=== PATIENT | male | born 1945 ===

== ENCOUNTER 2016-10-14 12:12 | Observation (INO) | payer OTHER, BC ==
[~2016-10-14] VITALS: Ht 185.4 cm; Wt 125.0 kg
--- NOTE | 2016-10-14 13:24 | DIAGNOSTIC IMAGING REPORT ---
PROCEDURE: CT HEAD WITHOUT CONTRAST INDICATION: FACIAL DROOP TECHNIQUE: Noncontrast axial images with sagittal and coronal reformations. COMPARISON: Head CT 06/11/2012. FINDINGS: Normal sulci and ventricular system. Mild white matter chronic ischemic changes. A 1 cm low-density lesion in the right centrum semiovale, new since the prior CT scan. No mass effect, midline shift or hemorrhage. Mild bilateral maxillary and sphenoid sinus disease. Visualized mastoids are clear. IMPRESSION: 1. 1 cm right centrum semiovale low-density lesion, new since head CT 06/11/2012, which could represent an acute or subacute CVA. MRI may be useful for further evaluation. 2. Mild white matter chronic ischemic changes 3. Sinus disease 4. Findings discussed with Dr. Watt at 01:18 p.m., [place] Standard Time
--- NOTE | 2016-10-14 13:29 | DIAGNOSTIC IMAGING REPORT ---
PROCEDURE: XR CHEST 1 VIEW INDICATION: FACIAL DROOP TECHNIQUE: Portable AP view 12:55 p.m. COMPARISON: Chest x-ray 04/05/2015. FINDINGS: Lung apices obscured by flexion of the head. Lungs are otherwise clear. Mild cardiomegaly. Mediastinum and pulmonary vessels are normal. Thorax is normal. No significant interval change. IMPRESSION: 1. Mild cardiomegaly.
--- NOTE | 2016-10-14 14:57 | ED ORDER SUMMARY ---
..... Patient: KEATON MEJIA OrderSheet [facility] VisitID: [id number] [address] [place] [address] 71y, M Registration Date/Time: 10/14/2016 ORDER SHEET Weight: 122.4 kg (stated) Allergies: Flexeril, Paprika, Penicillins GENERAL ORDERS: Chest 1V Urgent (12:38 10/14/2016 Eamon LEBLANC) (Ack 12:44 ROSEoerner) (12:53 KHoerner) Retail Customer Service Specialist (Continuous) (12:38 10/14/2016 Eamon LEBLANC) (13:24 Jamaal R.N.) CT Head wo Cont Urgent (12:39 10/14/2016 Eamon LEBLANC) (Ack 12:44 Rodriguez) (12:54 KHoerner) CBC w Diff Urgent (12:41 10/14/2016 Eamon LEBLANC) (Ack 12:44 Rodriguez) (13:03 SReitz R.N.) CMP Urgent (12:41 10/14/2016 Eamon LEBLANC) (Ack 12:44 Rdoriguez) (13:03 Mikeitz R.N.) UA-Culture if indicated Urgent (12:41 10/14/2016 Eamon LEBLANC) (Ack 12:44 ROSEoerner) PT with INR Urgent (12:41 10/14/2016 Eamon LEBLANC) (Ack 12:44 Rodriguez) (13:03 SReitz R.N.) PTT Urgent (12:41 10/14/2016 Eamon LEBLANC) (Ack 12:44 ROSEoecharity) (13:03 SReitz R.N.) Lipase Urgent (12:41 10/14/2016 Eamon LEBLANC) (Ack 12:44 Rodriguez) (13:03 SReitz R.N.) Amylase Urgent (12:41 10/14/2016 Eamon LEBLANC) (Ack 12:44 Rodriguez) (13:03 SReitz R.N.) CPK Urgent (12:41 10/14/2016 Eamon LEBLANC) (Ack 12:44 Rodriguez) (13:03 SReitz R.N.) Troponin-I Urgent (12:41 10/14/2016 Eamon LEBLANC) (Ack 12:44 Rodriguez) (13:03 Marilin Dao) Oxygen (2 L/min) (NC) (12:41 10/14/2016 Eamon LEBLANC) (13:24 Jamaal Arana.N.) Pulse oximeter (12:41 10/14/2016 Eamon LEBLANC) (13:03 Marilin Dao) EKG - ER Stat (12:41 10/14/2016 Eamon LEBLANC) (Ack 12:55 Apple) (13:24 Jamaal Arana.N.) MEDICATION ORDERS: IV FLUIDS: IV Saline Lock (12:41 10/14/2016 Eamon LEBLANC) (Ack 13:03 Marilin Dao) (13:24 Jamaal Dao) ORDER SHEET NOTES: [Electronically signed by Nora Montelongo R.N. (17:18 10/14/2016)] [Electronically signed by Deion Watt MD (19:40 10/14/2016)] [Electronically locked/signed by Nora Montelongo R.N. (17:18 10/14/2016)]
--- NOTE | 2016-10-14 14:57 | ED NURSING NOTES ---
Clinical Report - Nurses [facility] [address] [place] [address] 10/14/2016 12:15 Patient: KEATON MEJIA TRIAGE Triage time 12:22. Acuity: LEVEL 3. Chief Complaint: POSSIBLE ALLERGIC REACTION and SWELLING Alert. No acute distress. ( Pt. states he had some tea with honey in it. He is allergic to rafita's and he is concerned because he has been having swelling in his face and tongue since then.). SEPSIS SCREEN: Sepsis Screen. Negative (no infection suspected/documented). DAMARIS COMA SCORE: Damaris Coma Scale: 15- eyes open spontaneously (4); best verbal response- oriented x 4 (5); best motor response- obeys commands (6). --12:28 Nora Montelongo R.N. 12:22 10/14/16. BP: 143/86. HR: 65. RR: 20. O2 saturation: 97%. Temp: 98.5 F. Pain level now 0/10. --12:28 Nora Montelongo R.N. <<STRICKEN ENTRY-- 12:22. ( Fast exam negative.). --12:36 Nora Montelongo R.N. --END STRIKE>> Correction --13:23 Nora Montelongo R.N. Acuity: LEVEL 2. --13:21 Nora Montelongo R.N. ( 12:22 correction to prior charting: fast positive. Provider notified.). --13:23 Nora Montelongo R.N. Weight: 122.4 kg stated. Height/Length: 73 inches Per Patient. BMI: 35.6. --12:24 Nora Montelongo R.N. Medications Albuterol MDI prn. --12:28 Nora Montelongo R.N. Kierra 60 mg bid. Kierra-D Allergy & Congestion Oral. ASA Oral 325 mg q day. Benicar HCT Oral (Tablet 40-25 mg) 1 tablet, daily. Doxazosin Mesylate Oral (Tablet 4 mg) 1 tablet, q hs. Fexofenadine HCl Oral 60 mg, 2x a day. Furosemide Oral 40 mg, daily. HumaLOG Subcutaneous 32 units q am 58 units q pm. Insulin Lantus 40 units, at bedtime. MetFORMIN HCl Oral 500 mg 2 tabs , 2x a day. Methocarbamol Oral 500 mg, 4x a day as needed. Minitran Transdermal. Mirapex Oral (Tablet 0.25 mg) 1 tablet, at bedtime. Multivitamins Oral. NIFEdipine ER Osmotic Oral (Tablet Extended Release 24 Hour 60 mg), daily. NIFEdipine Oral 60 mg, daily. Nitro-Dur Transdermal 0.2 mg/hr, daily. Nitroglycerin 0.4 mg prn SL. Nitroglycerin Translingual. NovoLOG Subcutaneous 40 units, with dinner. Omeprazole Oral 20 mg, 2x a day. ProAir HFA Inhalation. Simvastatin Oral 40 mg, daily. Ventolin HFA Inhalation. Victoza Subcutaneous (Solution 18 mg/3mL) 1.8mg, in am. --12: Nora Montelongo R.N. Allergies Flexeril. Paprika. Penicillins. --12: Nora Montelongo R.N. History Arrived by private vehicle. Historian: patient. Accompanied by family. Primary physician (Dr. Clark). Onset. (3 days ago). Treatment PLATE SHOP HELPER: None. PAST MEDICAL HX: Immunizations: status is unknown. SOCIAL HX: Smoker- current status unknown. Occasional alcohol use. No drug use. No infectious disease exposure. ABUSE ASSESSMENT: Abuse assessment: The patient was asked "Do you feel safe in your home?" and "Has anyone hurt you or threatened to hurt you?". No report of abuse. NUTRITIONAL RISK ASSESSMENT: The nutritional risk assessment revealed no deficiencies. FUNCTIONAL ASSESSMENT: Functional assessment: no impairments noted. LEARNING NEEDS ASSESSMENT: The learning needs assessment revealed no barriers. --12:28 Nora Montelongo R.N. PROBLEMS: Chest Pain. Hypertension. Syncope. Hypomagnesemia. Dehydration. Gastroesophageal Reflux. Environmental Allergies. Chronic Back Pain. Prostate Cancer. Hyperlipidemia. Hypercholesterolemia. Sleep Apnea. Morbid obesity. Heart Disease. Diabetes Mellitus. --12: Nora Montelongo R.N. ADDITIONAL SURGERIES: Appendectomy. Bursectomy left elbow. Hernia Repair. Leg. --12:28 Nora Montelongo R.N. Interventions ID band on patient. Ambulatory. --12:28 Nora Montelongo R.N. PHYSICAL ASSESSMENT Ambulatory to room. GENERAL / NEURO / PSYCH: Alert. The patient does not appear to be in acute distress. RESPIRATORY: Respirations not labored. Breath sounds within normal limits. CVS: Capillary refill less than 2 seconds. Pulses within normal limits. SKIN: Skin is intact, warm and dry. --12:29 Nora Montelongo R.N. 12:29. GENERAL / NEURO / PSYCH: ( pt. has slurred speech. states it is normal for him to have some slurred speech but it seems worse since drinking the tea on Friday. Left sided facial drop noted. states this is normal because of his hx of TMJ but it seems "a little worse" since Friday.). --13:03 Nora Montelongo R.N. NURSING PROGRESS NOTES Patient gowned. Head of bed elevated. Two patient identifiers checked. Call light placed in reach. Side rails up x 2. Bed placed in lowest position. Brakes of bed on. Patient ready for evaluation- chart flagged. --12:29 Nora Montelongo R.N. ( provider in with pt. for eval.). --12:36 Nora Montelongo R.N. Patient returned from radiology by stretcher with tech. --13:01 Nora Montelongo R.N. EKG time: (13:12). EKG was performed by a tech and shown to the ED physician. --13:20 Jesica Jordan 13:24 10/14/2016 Site #1 started via IV in the right hand with an 20g angiocath, with aseptic technique and good blood return; one attempt. Blood drawn: rainbow set. Labeled in the presence of the patient and sent to the lab. Saline lock flushed with 10 mL saline. --13:24 Negrito Melissa R.N. 13:12. cycle counter, pulse oximeter and NIBP monitor placed on patient; cdl driver- Lead II; monitor alarms on. --13:35 Nora Montelongo R.N. 13:35 10/14/16. BP: 153/81. HR: 79. RR: 18. O2 saturation: 98%. --13:35 Nora Montelongo R.N. 14:52 10/14/16. BP: 152/81. HR: 86. RR: 20. O2 saturation: 98%. --14:53 Nora Montelongo R.N. ( Pt. ambulated to bathroom. Tolerated well.). --14:53 Nora Montelongo R.N. 16:38 10/14/16. BP: 147/77. HR: 85 (regular and normal rate). RR: 16. O2 saturation: 97% on nasal cannula at 2 liters/minute. Pain level now: 0/10. --16:42 Nora Montelongo R.N. Patient ID band checked for patient name, birthdate and medical record number: patient confirmed. Instructions provided to collect clean catch urine and patient verbalized understanding. Clean catch urine collected with return of yellow-colored clear urine; sample sent to lab for urinalysis. Specimen labeled in the presence of the patient. --16:42 Nora Montelongo R.N. DISPOSITION / DISCHARGE Report was given to a nurse via a phone call. Report included patient's care, treatment, medications, reviewed medication reconcilliation, and condition (including any recent changes or anticipated changes). All questions were answered. --17:10 Radha Noriega Admitted to Acute Care. Patient's personal items; items were placed in belongings bag, given to the patient and transported with the patient. --17:10 Radha Noriega 17:10 10/14/2016 Site #[address] upon admission; patent; flushes easily. --17:10 Radha Noriega 17:11 10/14/16. BP: 146/70. HR: 89. RR: 16. O2 saturation: 99% on nasal cannula at 2 liters/minute. Temp: 98.6 F. Pain level now: 0/10. --17:11 Nora Montelongo R.N. Departure time: 17:11. --17:12 Nora Montelongo R.N. Locked/Released at 10/14/2016 17:18 by oNra Montelongo R.N.
--- NOTE | 2016-10-14 14:57 | ED CLINICAL REPORT ---
Clinical Report - Physicians/Mid Levels [facility] [address] [place] [address] 10/14/2016 12:15 Patient: KEATON MEJIA Time Seen: 12:22. Arrived- By private vehicle. Historian- patient and spouse. HISTORY OF PRESENT ILLNESS Chief Complaint: FACIAL DROOP. The patient has had new onset of weakness of the left face (moderate). He has had difficulty with speech. No visual disturbance or impaired swallowing. No difficulty walking. This started several days ago and is still present. It was abrupt in onset and has been constant. At its maximum deficit described as moderate. When seen in the E.D.,deficit described as moderate. No dizziness, altered mental status, seizure or blackouts. Usually is alert and oriented X3 and has normal mobility. Similar symptoms previously: None. REVIEW OF SYSTEMS No chills, fever, sweats, calf pain or chest pain. No cough, difficulty breathing, pedal edema, palpitations or abdominal pain. No constipation, diarrhea, nausea, vomiting or urinary problems. All systems otherwise negative, except as recorded above. PAST HISTORY ( PCP - ROCKY FISCHER). Problems: Chest Pain. Hypertension. Syncope. Hypomagnesemia. Dehydration. Gastroesophageal Reflux. Environmental Allergies. Chronic Back Pain. Prostate Cancer. Hyperlipidemia. Hypercholesterolemia. Sleep Apnea. Morbid obesity. Essential Hypertension. Heart Disease. Diabetes Mellitus. Medications: Kierra 60 mg bid. Kierra-D Allergy & Congestion Oral. ASA Oral 325 mg q day. Benicar HCT Oral (Tablet 40-25 mg) 1 tablet, daily. Doxazosin Mesylate Oral (Tablet 4 mg) 1 tablet, q hs. Fexofenadine HCl Oral 60 mg, 2x a day. Furosemide Oral 40 mg, daily. HumaLOG Subcutaneous 32 units q am 58 units q pm. Insulin Lantus 40 units, at bedtime. MetFORMIN HCl Oral 500 mg 2 tabs , 2x a day. Methocarbamol Oral 500 mg, 4x a day as needed. Minitran Transdermal. Mirapex Oral (Tablet 0.25 mg) 1 tablet, at bedtime. Multivitamins Oral. NIFEdipine ER Osmotic Oral (Tablet Extended Release 24 Hour 60 mg), daily. NIFEdipine Oral 60 mg, daily. Nitro-Dur Transdermal 0.2 mg/hr, daily. Nitroglycerin 0.4 mg prn SL. Nitroglycerin Translingual. NovoLOG Subcutaneous 40 units, with dinner. Omeprazole Oral 20 mg, 2x a day. ProAir HFA Inhalation. Simvastatin Oral 40 mg, daily. Ventolin HFA Inhalation. Victoza Subcutaneous (Solution 18 mg/3mL) 1.8mg, in am. Albuterol MDI prn. Allergies: Flexeril. Paprika. Penicillins. SOCIAL HISTORY Never smoker. No alcohol use or drug use. FAMILY HISTORY Denies family medical history. ADDITIONAL NOTES The nursing notes have been reviewed. PHYSICAL EXAM Vital Signs: 10/14/2016 12:22 BP: 143/86. HR: 65. RR: 20. O2 saturation: 97%. Temp: 98.5 F. Have been reviewed. Appearance: Alert. Head: Head atraumatic. Eyes: Pupils equal, round and reactive to light. No nystagmus. ENT: Airway intact. Pharynx normal. No trouble handling secretions. Neck: Neck supple. No meningeal signs or carotid bruit. CVS: Normal heart rate and rhythm. Heart sounds normal. Respiratory: No respiratory distress. Breath sounds normal. Abdomen: Soft and nontender. No organomegaly. Back: Normal inspection. Skin: Skin warm and dry. Normal skin color. Normal skin turgor. Extremities: Extremities exhibit normal ROM. No calf tenderness. No lower extremity edema. Neuro: Alert. Moderate left-sided facial weakness with sparing of forehead. No pronator drift. LABS, X-RAYS, AND EKG EKG: Rate: 81. Changes present when compared to prior EKG. (02 August 2014). The study has been independently viewed by me. Chest X-ray: Mild cardiomegaly. The X-rays were independently viewed by me. CT Head: (IMPRESSION: 1. No CT evidence of acute intracranial process. 2. Age related involutional changes. 3. Small patch of chronic microvascular ischemic change in the right frontal lobe white matter. Otherwise minimal evidence of chronic microvascular ischemia.). The study was interpreted contemporaneously by me and discussed with the radiologist. Laboratory Tests: UA-Culture if indicated: (SHERYL: 10/14/2016 16:45) ( [facility] 10/14/2016 16:59) Final results Test Result Flag Units (Reference) URINE COLOR LIGHT YELLOW URINE APPEARANCE CLEAR URINE GLUCOSE NEGATIVE (NEGATIVE) URINE BILIRUBIN NEGATIVE (NEGATIVE) URINE KETONE NEGATIVE (NEGATIVE) URINE SPECIFIC GRAVITY 1.015 (1.010-1.030) URINE PH 5.5 (5.0-8.0) URINE PROTEIN NEGATIVE (NEGATIVE) URINE UROBILINOGEN 0.2 EU/dL (0.2-1.0) URINE NITRITE NEGATIVE (NEGATIVE) URINE BLOOD NEGATIVE (NEGATIVE) URINE LEUK ESTERASE NEGATIVE (NEGATIVE) URINE RBC NONE SEEN rbc/hpf (0-1) URINE WBC RARE wbc/hpf (0-1) URINE EPITHELIAL CELLS RARE EPI/hpf (0-5) URINE BACTERIA NONE SEEN (NONE SEEN) URINE COMMENT CULT NOT INDICATED URINE CULTURES ARE SET-UP BASED ON THE FOLLOWING CRITERIA:POSITIVE NITRITEPOSITIVE LEUKOCYTE ESTERASEGREATER THAN 10 WHITE BLOOD CELLSMODERATE (2+) OR GREATER BACTERIA CBC w Diff: (SHERYL: 10/14/2016 12:50) ( [facility] 10/14/2016 13:01) Final results Test Result Flag Units (Reference) WHITE BLOOD COUNT 5.9 K/uL (4.5-11.5) RED BLOOD COUNT 4.07 L M/uL (4.50-5.90) HEMOGLOBIN 11.1 L gm/dL (13.5-17.5) HEMATOCRIT 34.3 L % (41.0-53.0) MEAN CELL VOLUME 84 fL (80-100) MEAN CORPUSCULAR HGB 27 pg (26-34) MEAN CORPUSCULAR HGB CONC 33 g/dL (31-37) RED CELL DISTRIBUTION WIDTH 15.9 H % (11.6-14.8) PLATELET COUNT 304 K/uL (150-400) NEUTROPHIL % 70.4 % (50-75) LYMPH % 17.4 L % (25-40) MONO % 7.9 % (3-14) EOSINOPHIL % 3.9 % (0-4) BASOPHIL % 0.4 % (0-2) PT with INR: (SHERYL: 10/14/2016 12:50) ( [facility] 10/14/2016 13:16) Final results Test Result Flag Units (Reference) INR 1.0 (0.8-1.2) Low Intensity Therapy: INR 1.5-2.0 PT range 18.5-23.1Mod.Intensity Therapy: INR 2.0-3.0 PT range 23.1-31.5High Intensity Therapy: INR 2.5-3.5 PT range 27.4-35.5High Intensity Therapy 2: INR 3.0-4.0 PT range 31.5-39.3 APTT 29 SECONDS (24-34) CMP: (SHERYL: 10/14/2016 12:50) ( MsgRcvd 10/14/2016 13:30) Final results Test Result Flag Units (Reference) GLUCOSE 121 H mg/dL (70-110) BUN 16 mg/dL (7-18) CREATININE 1.0 mg/dL (0.6-1.3) Estimated GFR >60 mL/min Estimated GFR- >60 mL/min Note: Persistent reduction over 3 months in eGFR<60 mL/min/1.73 m2 defines CKD. Patients with eGFR values>=60 mL/min/1.73 m2 may also have CKD if evidence ofpersistent proteinuria. Additional information may be foundat www.kidney.org. SODIUM 142 mmol/L (136-145) POTASSIUM 3.6 mmol/L (3.5-5.1) CHLORIDE 104 mmol/L (98-107) CARBON DIOXIDE 25 mmol/L (21-32) CALCIUM 8.9 mg/dL (8.5-10.1) TOTAL PROTEIN 7.0 g/dL (6.4-8.2) ALBUMIN 3.3 g/dL (3.3-5.0) BILIRUBIN, TOTAL 0.5 mg/dL (0.0-1.0) ALKALINE PHOSPHATASE 82 U/L (46-116) AST (SGOT) 21 U/L (15-37) ALT (SGPT) 23 U/L (12-78) LIPASE 175 U/L (73-393) AMYLASE 58 U/L (25-115) CPK 190 U/L (24-260) TROPONIN I <0.05 ng/mL (0.00-1.5) TROPONIN REFERENCE RANGE:<0.1 NEGATIVE0.1-1.5 INDETERMINANT>1.5 POSITIVE . PROGRESS AND PROCEDURES Course of Care: Patient is stable. Discussed case with on-call health care provider, (Miguel Angel). Reviewed test results and need for additional work-up. Agreed upon treatment plan, need for patient follow-up and decision to admit. Health care provider will see patient in hospital. Patient/family counseled. Old medical records reviewed. Disposition orders written (in [employer]). CLINICAL IMPRESSION Nontraumatic cerebrovascular accident. (Electronically signed by Deion Watt MD 10/14/2016 19:40)
--- NOTE | 2016-10-14 14:57 | ED ORDER SUMMARY ---
..... Patient: KEATON MEJIA OrderSheet [facility] VisitID: [id number] [address] [place] [address] 71y, M Registration Date/Time: 10/14/2016 ORDER SHEET Weight: 122.4 kg (stated) Allergies: Flexeril, Paprika, Penicillins GENERAL ORDERS: Chest 1V Urgent (12:38 10/14/2016 Eamon LEBLANC) (Ack 12:44 ROSEoerner) (12:53 KHoerner) Parent Aide (Continuous) (12:38 10/14/2016 Eamon LEBLANC) (13:24 Jamaal R.N.) CT Head wo Cont Urgent (12:39 10/14/2016 Eamon LEBLANC) (Ack 12:44 Rodriguez) (12:54 KHoerner) CBC w Diff Urgent (12:41 10/14/2016 Eamon LEBLANC) (Ack 12:44 Rodriguez) (13:03 SReitz R.N.) CMP Urgent (12:41 10/14/2016 Eamon LEBLANC) (Ack 12:44 Rodriguez) (13:03 Mikeitz R.N.) UA-Culture if indicated Urgent (12:41 10/14/2016 Eamon LEBLANC) (Ack 12:44 ROSEoerner) PT with INR Urgent (12:41 10/14/2016 Eamon LEBLANC) (Ack 12:44 Rodriguez) (13:03 SReitz R.N.) PTT Urgent (12:41 10/14/2016 Eamon LEBLANC) (Ack 12:44 ROSEoecharity) (13:03 SReitz R.N.) Lipase Urgent (12:41 10/14/2016 Eamon LEBLANC) (Ack 12:44 Rodriguez) (13:03 SReitz R.N.) Amylase Urgent (12:41 10/14/2016 Eamon LEBLANC) (Ack 12:44 Rodriguez) (13:03 SReitz R.N.) CPK Urgent (12:41 10/14/2016 Eamon LEBLANC) (Ack 12:44 Rodriguez) (13:03 SReitz R.N.) Troponin-I Urgent (12:41 10/14/2016 Eamon LEBLANC) (Ack 12:44 Rodriguez) (13:03 Marilin Dao) Oxygen (2 L/min) (NC) (12:41 10/14/2016 Eamon LEBLANC) (13:24 Jamaal Arana.N.) Pulse oximeter (12:41 10/14/2016 Eamon LEBLANC) (13:03 Marilin Dao) EKG - ER Stat (12:41 10/14/2016 Eamon LEBLANC) (Ack 12:55 Apple) (13:24 Jamaal Arana.N.) MEDICATION ORDERS: IV FLUIDS: IV Saline Lock (12:41 10/14/2016 Eamon LEBLANC) (Ack 13:03 Marilin Dao) (13:24 Jamaal Dao) ORDER SHEET NOTES: [Electronically signed by Nora Montelongo R.N. (17:18 10/14/2016)] [Electronically signed by Deion Watt MD (19:40 10/14/2016)] [Electronically locked/signed by Nora Montelongo R.N. (17:18 10/14/2016)]
--- NOTE | 2016-10-14 14:57 | ED NURSING NOTES ---
Clinical Report - Nurses [facility] [address] [place] [address] 10/14/2016 12:15 Patient: KEATON MEJIA TRIAGE Triage time 12:22. Acuity: LEVEL 3. Chief Complaint: POSSIBLE ALLERGIC REACTION and SWELLING Alert. No acute distress. ( Pt. states he had some tea with honey in it. He is allergic to rafita's and he is concerned because he has been having swelling in his face and tongue since then.). SEPSIS SCREEN: Sepsis Screen. Negative (no infection suspected/documented). DAMARIS COMA SCORE: Damaris Coma Scale: 15- eyes open spontaneously (4); best verbal response- oriented x 4 (5); best motor response- obeys commands (6). --12:28 Nora Montelongo R.N. 12:22 10/14/16. BP: 143/86. HR: 65. RR: 20. O2 saturation: 97%. Temp: 98.5 F. Pain level now 0/10. --12:28 Nora Montelongo R.N. <<STRICKEN ENTRY-- 12:22. ( Fast exam negative.). --12:36 Nora Montelongo R.N. --END STRIKE>> Correction --13:23 Nora Montelongo R.N. Acuity: LEVEL 2. --13:21 Nora Montelongo R.N. ( 12:22 correction to prior charting: fast positive. Provider notified.). --13:23 Nora Montelongo R.N. Weight: 122.4 kg stated. Height/Length: 73 inches Per Patient. BMI: 35.6. --12:24 Nora Montelongo R.N. Medications Albuterol MDI prn. --12:28 Nora Montelongo R.N. Kierra 60 mg bid. Kierra-D Allergy & Congestion Oral. ASA Oral 325 mg q day. Benicar HCT Oral (Tablet 40-25 mg) 1 tablet, daily. Doxazosin Mesylate Oral (Tablet 4 mg) 1 tablet, q hs. Fexofenadine HCl Oral 60 mg, 2x a day. Furosemide Oral 40 mg, daily. HumaLOG Subcutaneous 32 units q am 58 units q pm. Insulin Lantus 40 units, at bedtime. MetFORMIN HCl Oral 500 mg 2 tabs , 2x a day. Methocarbamol Oral 500 mg, 4x a day as needed. Minitran Transdermal. Mirapex Oral (Tablet 0.25 mg) 1 tablet, at bedtime. Multivitamins Oral. NIFEdipine ER Osmotic Oral (Tablet Extended Release 24 Hour 60 mg), daily. NIFEdipine Oral 60 mg, daily. Nitro-Dur Transdermal 0.2 mg/hr, daily. Nitroglycerin 0.4 mg prn SL. Nitroglycerin Translingual. NovoLOG Subcutaneous 40 units, with dinner. Omeprazole Oral 20 mg, 2x a day. ProAir HFA Inhalation. Simvastatin Oral 40 mg, daily. Ventolin HFA Inhalation. Victoza Subcutaneous (Solution 18 mg/3mL) 1.8mg, in am. --12: Nora Montelongo R.N. Allergies Flexeril. Paprika. Penicillins. --12: Nora Montelongo R.N. History Arrived by private vehicle. Historian: patient. Accompanied by family. Primary physician (Dr. Clark). Onset. (3 days ago). Treatment [employer]: None. PAST MEDICAL HX: Immunizations: status is unknown. SOCIAL HX: Smoker- current status unknown. Occasional alcohol use. No drug use. No infectious disease exposure. ABUSE ASSESSMENT: Abuse assessment: The patient was asked "Do you feel safe in your home?" and "Has anyone hurt you or threatened to hurt you?". No report of abuse. NUTRITIONAL RISK ASSESSMENT: The nutritional risk assessment revealed no deficiencies. FUNCTIONAL ASSESSMENT: Functional assessment: no impairments noted. LEARNING NEEDS ASSESSMENT: The learning needs assessment revealed no barriers. --12:28 Nora Montelongo R.N. PROBLEMS: Chest Pain. Hypertension. Syncope. Hypomagnesemia. Dehydration. Gastroesophageal Reflux. Environmental Allergies. Chronic Back Pain. Prostate Cancer. Hyperlipidemia. Hypercholesterolemia. Sleep Apnea. Morbid obesity. Heart Disease. Diabetes Mellitus. --12: Nora Montelongo R.N. ADDITIONAL SURGERIES: Appendectomy. Bursectomy left elbow. Hernia Repair. Leg. --12:28 Nora Montelongo R.N. Interventions ID band on patient. Ambulatory. --12:28 Nora Montelongo R.N. PHYSICAL ASSESSMENT Ambulatory to room. GENERAL / NEURO / PSYCH: Alert. The patient does not appear to be in acute distress. RESPIRATORY: Respirations not labored. Breath sounds within normal limits. CVS: Capillary refill less than 2 seconds. Pulses within normal limits. SKIN: Skin is intact, warm and dry. --12:29 Nora Montelongo R.N. 12:29. GENERAL / NEURO / PSYCH: ( pt. has slurred speech. states it is normal for him to have some slurred speech but it seems worse since drinking the tea on Friday. Left sided facial drop noted. states this is normal because of his hx of TMJ but it seems "a little worse" since Friday.). --13:03 Nora Montelongo R.N. NURSING PROGRESS NOTES Patient gowned. Head of bed elevated. Two patient identifiers checked. Call light placed in reach. Side rails up x 2. Bed placed in lowest position. Brakes of bed on. Patient ready for evaluation- chart flagged. --12:29 Nora Montelongo R.N. ( provider in with pt. for eval.). --12:36 Nora Montelongo R.N. Patient returned from radiology by stretcher with tech. --13:01 Nora Montelongo R.N. EKG time: (13:12). EKG was performed by a tech and shown to the ED physician. --13:20 Jesica Jordan 13:24 10/14/2016 Site #1 started via IV in the right hand with an 20g angiocath, with aseptic technique and good blood return; one attempt. Blood drawn: rainbow set. Labeled in the presence of the patient and sent to the lab. Saline lock flushed with 10 mL saline. --13:24 Negrito Melissa R.N. 13:12. assurance engineer, pulse oximeter and NIBP monitor placed on patient; touch up edger- Lead II; monitor alarms on. --13:35 Nora Montelongo R.N. 13:35 10/14/16. BP: 153/81. HR: 79. RR: 18. O2 saturation: 98%. --13:35 Nora Montelongo R.N. 14:52 10/14/16. BP: 152/81. HR: 86. RR: 20. O2 saturation: 98%. --14:53 Nora Montelongo R.N. ( Pt. ambulated to bathroom. Tolerated well.). --14:53 Nora Montelongo R.N. 16:38 10/14/16. BP: 147/77. HR: 85 (regular and normal rate). RR: 16. O2 saturation: 97% on nasal cannula at 2 liters/minute. Pain level now: 0/10. --16:42 Nora Montelongo R.N. Patient ID band checked for patient name, birthdate and medical record number: patient confirmed. Instructions provided to collect clean catch urine and patient verbalized understanding. Clean catch urine collected with return of yellow-colored clear urine; sample sent to lab for urinalysis. Specimen labeled in the presence of the patient. --16:42 Nora Montelongo R.N. DISPOSITION / DISCHARGE Report was given to a nurse via a phone call. Report included patient's care, treatment, medications, reviewed medication reconcilliation, and condition (including any recent changes or anticipated changes). All questions were answered. --17:10 Radha Noriega Admitted to Acute Care. Patient's personal items; items were placed in belongings bag, given to the patient and transported with the patient. --17:10 Radha Noriega 17:10 10/14/2016 Site #[address] upon admission; patent; flushes easily. --17:10 Radha Noriega 17:11 10/14/16. BP: 146/70. HR: 89. RR: 16. O2 saturation: 99% on nasal cannula at 2 liters/minute. Temp: 98.6 F. Pain level now: 0/10. --17:11 Nora Montelongo R.N. Departure time: 17:11. --17:12 Nora Montelongo R.N. Locked/Released at 10/14/2016 17:18 by Nora Montelongo R.N.
[2016-10-14 17:44] VITALS: BP 170/77
[2016-10-14] MEDS ORDERED: ALLEGRA60 MG (18:47)
[2016-10-14] MEDS ORDERED: ALBUTEROL HFA60 DOSE IN (18:47)
[2016-10-14] MEDS ORDERED: ASPIRIN325 MG PO (18:49)
[2016-10-14] MEDS ORDERED: BENICAR40 MG (18:49)
[2016-10-14] MEDS ORDERED: CARDURA4 MG PO (18:50)
[2016-10-14] MEDS ORDERED: FUROSEMIDE40 MG PO (18:51)
[2016-10-14] MEDS ORDERED: HUMALOG100 MG/ML SC (18:55)
[2016-10-14] MEDS ORDERED: LANTUS SOL100 UNITS/ (18:57)
[2016-10-14] MEDS ORDERED: METFORMIN HCL500 MG PO (18:58)
[2016-10-14] MEDS ORDERED: METHOCARBAMOL500 MG PO (18:59)
[2016-10-14] MEDS ORDERED: NITROGLYCER0.1 MG/HR TOP (19:01)
[2016-10-14] MEDS ORDERED: MIRAPEX ER0.375 MG PO (19:02)
[2016-10-14] MEDS ORDERED: NIFEDIPINE ER30 MG PO (19:03)
[2016-10-14] MEDS ORDERED: NITROSTAT0.4 MG SL (19:08)
--- NOTE | 2016-10-14 19:40 | ED MAR SUMMARY ---
..... Medication Administration Record [facility] [address] [place], [place] [id number] Patient: KEATON MEJIA Visit ID: [id number] 71y, M Weight: 122.4 kg Height/Length: 73 in BMI: 35.6 ALLERGIES: Flexeril, Paprika, Penicillins
--- NOTE | 2016-10-14 19:40 | ED DISCHARGE INSTRUCTIONS ---
Patient: KEATON MEJIA General Instructions [facility] VisitID: [id number] [address] [place] [address] 71y, M Registration Date/Time: 10/14/2016 Nontraumatic cerebrovascular accident. (Electronically signed by Deion Watt MD 10/14/2016 19:40)
--- NOTE | 2016-10-14 19:40 | ED MED RECONCILIATION SUMMARY ---
Patient: KEATON MEJIA Medication Reconciliation Report [facility] VisitID: [id number] [address] [place] [address] 71y, M Registration Date/Time: 10/14/2016 Weight: 122.4 kg Height/Length: 73 in. BMI: 35.6 ALLERGIES: Flexeril, Paprika, Penicillins The patient's Home Medications are listed below: THE FOLLOWING MEDICATIONS NEED TO BE RECONCILED: Albuterol MDI prn Kierra 60 mg bid Kierra-D Allergy & Congestion Oral ASA Oral 325 mg q day Benicar HCT Oral (40-25 mg) 1 tablet, daily Doxazosin Mesylate Oral (4 mg) 1 tablet, q hs Fexofenadine HCl Oral 60 mg, 2x a day Furosemide Oral 40 mg, daily HumaLOG Subcutaneous 32 units q am 58 units q pm Insulin Lantus 40 units, at bedtime MetFORMIN HCl Oral 500 mg 2 tabs , 2x a day Methocarbamol Oral 500 mg, 4x a day Minitran Transdermal Mirapex Oral (0.25 mg) 1 tablet, at bedtime Multivitamins Oral NIFEdipine ER Osmotic Oral (60 mg), daily NIFEdipine Oral 60 mg, daily Nitro-Dur Transdermal 0.2 mg/hr, daily Nitroglycerin 0.4 mg prn SL Nitroglycerin Translingual NovoLOG Subcutaneous 40 units, with dinner Omeprazole Oral 20 mg, 2x a day ProAir HFA Inhalation Simvastatin Oral 40 mg, daily Ventolin HFA Inhalation Victoza Subcutaneous (18 mg/3mL) 1.8mg, in am The source(s) of the original Home Medication information: Not obtained. The following Medications were given to the patient in the Emergency Department: None. The following Medications were prescribed to the patient: None.
--- NOTE | 2016-10-14 19:40 | ED DISCHARGE INSTRUCTIONS ---
Patient: KEATON MEJIA General Instructions [facility] VisitID: [id number] [address] [place] [address] 71y, M Registration Date/Time: 10/14/2016 Nontraumatic cerebrovascular accident. (Electronically signed by Deion Watt MD 10/14/2016 19:40)
--- NOTE | 2016-10-14 19:40 | ED MAR SUMMARY ---
..... Medication Administration Record [facility] [address] [place], [place] [id number] Patient: KEATON MEJIA Visit ID: [id number] 71y, M Weight: 122.4 kg Height/Length: 73 in BMI: 35.6 ALLERGIES: Flexeril, Paprika, Penicillins
--- NOTE | 2016-10-14 19:40 | ED MED RECONCILIATION SUMMARY ---
Patient: KEATON MEJIA Medication Reconciliation Report [facility] VisitID: [id number] [address] [place] [address] 71y, M Registration Date/Time: 10/14/2016 Weight: 122.4 kg Height/Length: 73 in. BMI: 35.6 ALLERGIES: Flexeril, Paprika, Penicillins The patient's Home Medications are listed below: THE FOLLOWING MEDICATIONS NEED TO BE RECONCILED: Albuterol MDI prn Kierra 60 mg bid Kierra-D Allergy & Congestion Oral ASA Oral 325 mg q day Benicar HCT Oral (40-25 mg) 1 tablet, daily Doxazosin Mesylate Oral (4 mg) 1 tablet, q hs Fexofenadine HCl Oral 60 mg, 2x a day Furosemide Oral 40 mg, daily HumaLOG Subcutaneous 32 units q am 58 units q pm Insulin Lantus 40 units, at bedtime MetFORMIN HCl Oral 500 mg 2 tabs , 2x a day Methocarbamol Oral 500 mg, 4x a day Minitran Transdermal Mirapex Oral (0.25 mg) 1 tablet, at bedtime Multivitamins Oral NIFEdipine ER Osmotic Oral (60 mg), daily NIFEdipine Oral 60 mg, daily Nitro-Dur Transdermal 0.2 mg/hr, daily Nitroglycerin 0.4 mg prn SL Nitroglycerin Translingual NovoLOG Subcutaneous 40 units, with dinner Omeprazole Oral 20 mg, 2x a day ProAir HFA Inhalation Simvastatin Oral 40 mg, daily Ventolin HFA Inhalation Victoza Subcutaneous (18 mg/3mL) 1.8mg, in am The source(s) of the original Home Medication information: Not obtained. The following Medications were given to the patient in the Emergency Department: None. The following Medications were prescribed to the patient: None.
[2016-10-14] MEDS ORDERED: NOVOLOG PE100 UNITS/ (19:51)
[2016-10-14] MEDS ORDERED: PRILOSEC20 MG PO (19:52)
[2016-10-14] MEDS ORDERED: PROAIR HFA IN (19:53)
[2016-10-14] MEDS ORDERED: SIMVASTATIN40 MG PO (19:54)
[2016-10-14] MEDS ORDERED: VENTOLIN HFA IN (19:55)
[2016-10-14] MEDS ORDERED: VICTOZA18 MG/3 ML SC (19:59)
[2016-10-14] MEDS ORDERED: TRULICITY0.75 MG/0. SC (20:00)
[2016-10-14 23:02] VITALS: BP 163/95
--- NOTE | 2016-10-14 23:22 | HISTORY AND PHYSICAL ---
ADMITTED: 10/14/2016 CHIEF COMPLAINT: 1. Left facial swelling HISTORY OF PRESENT ILLNESS: A 71-year-old male presented to [facility] Emergency Department for evaluation of swelling in the left side of his face noted by patient and family 3 days prior to admission. It came on after a meal. They thought it might be an allergic reaction. It was treated initially with ice, which seemed to improve. They noted he was unable to speak. He was lisping and drooling, which was felt to be due to swelling. The symptoms improved somewhat, but continued and then seemed to worsen again on the day of admission. A phone call was, therefore, made to his doctor's office. He was advised to go to the emergency department. In the emergency department, the patient was noted to have a left facial droop. CT of the head was obtained and CVA diagnosed. The patient was admitted for further evaluation and treatment. MEDICAL/SURGICAL HISTORY: Past medical history remarkable for lumbar stenosis with neurogenic claudication, 1 year post surgery; cervical spondylosis with myelopathy; internal derangement of the knees; essential tremor; obstructive sleep apnea; asthma; angina; morbid obesity; diabetes mellitus, poorly controlled; essential hypertension; hyperlipidemia; BPH; restless legs syndrome; diabetic neuropathy; prostate cancer in 2005. Past surgical history: Appendectomy, herniorrhaphy, knee surgery, right knee arthroscopy, laminectomy. MEDICATIONS: 1. Metoprolol tartrate 25 mg 1 p.o. b.i.d. p.r.n. shaking. 2. Voltaren gel apply to extremities p.r.n. pain. 3. MiraLAX powder 1 gram daily p.r.n. constipation. 4. Dulera 200/5 one puff b.i.d. 5. Kierra 60 mg p.o. b.i.d. for allergies. 6. Aspirin 325 mg p.o. daily. 7. Mirapex 0.25 mg p.o. at bedtime. 8. Trulicity 1 injection 1.5 mg q. week. 9. Humalog 15 units subcutaneous with dinner. 10. Lantus 24 units subcutaneous at bedtime. 11. Humalog 50/50, 34 units q.a.m. 12. Ventolin 2 puffs q.4 hours p.r.n. wheezing. 13. Minitran 0.2 mg/hr, 1 patch q.a.m., remove at bedtime. 14. Omeprazole 40 mg p.o. daily. 15. Furosemide 40 mg 1/2 tablet at bedtime. 16. Metformin 500 mg 2 p.o. b.i.d. 17. Simvastatin 40 mg p.o. daily. 18. Methocarbamol 500 mg 1-2 q.6 hours p.r.n. 19. Benicar 40/25 one p.o. daily. 20. Nifedipine XR 60 mg p.o. daily. 21. Doxazosin 4 mg p.o. at bedtime. 22. Multivitamin 1 p.o. daily. 23. Nitrostat 0.4 mg sublingual p.r.n. chest pain. 24. Acetaminophen 325 mg p.o. daily p.r.n. ALLERGIES: 1. SLEEPING PILLS. 2. FLU SHOTS. 3. PENICILLIN. 4. FLEXERIL. SOCIAL HISTORY: male, retired, knik chair. Hobbies: Casino. FAMILY HISTORY: Positive for coronary artery disease in his father, mother, and sister. Diabetes in his mother. Hypertension in his mother. Breast cancer in his mother. Stroke in his mother. Sister had colon cancer. REVIEW OF SYSTEMS: The patient denies URI symptoms. He states he thought he had a cold last week. Denies hearing change, vision change, or sore throat. Respiratory: Denies cough, shortness of breath, or wheezing. Cardiovascular: Denies chest pain, palpitations, paroxysmal nocturnal dyspnea. Gastrointestinal: Denies nausea, vomiting, diarrhea, constipation, melena, bright red blood per rectum. PHYSICAL EXAMINATION: VITAL SIGNS: Blood pressure 143/86, pulse 65, respirations 20, SaO2 97%, temperature 98.5. HEENT: Clear. NECK: Supple without adenopathy or thyromegaly. CHEST: Clear to auscultation and percussion. HEART: Regular rate and rhythm without murmur. ABDOMEN: Positive bowel sounds. Soft, nontender, without hepatosplenomegaly or masses. Obese. BACK: Straight without CVA tenderness. EXTREMITIES: Without cyanosis, clubbing, or edema. NEUROLOGIC: Reveals left facial droop and lisp on speech; however, the patient has normal tongue movements, normal sensation of the face. Cranial nerves II-XII are grossly intact and symmetric, other than the left facial droop which affects only the lower face. [place] Baler, coordination, and gait appear normal and symmetric. LAB/IMAGING: EKG: Sinus rhythm with a rate of 81. Chest x-ray: Mild cardiomegaly noted. CT head shows: 1. A 1 cm right centrum semiovale low-density lesion, new since CT of 2012, question acute versus subacute CVA. 2. Mild white matter chronic ischemic changes. 3. Sinus disease. Labs: WBC 5.9, hemoglobin 11.1, hematocrit 34.3, platelets 304. Sodium 142, potassium 3.6, chloride 104, bicarbonate 25, creatinine 1.0, glucose 121, calcium 8.9. Bilirubin 0.5, AST 21, ALT 23. CK 190. Albumin 3.3. Lipase 175. INR 1.0. Urinalysis clear with pH 5.5, specific gravity 1.015. IMPRESSION: 1. Right-sided cerebrovascular accident with left facial droop and speech disturbance. 2. Diabetes mellitus type 2, stable. 3. Hypertension. 4. Hyperlipidemia. PLAN: Admit to [facility] for MRI brain, along with carotid ultrasound and echocardiogram.
[2016-10-15 02:57] VITALS: BP 136/86
[2016-10-15 06:33] VITALS: BP 157/87
--- NOTE | 2016-10-15 07:30 | Progress Note ---
Subjective General 71 y.o. male with HTN, DM ,KRISTYN who presented to the ER with "face swelling" has facial droop and mild dysarthria and new stroke. Today he states he is doing well. He would like to go home later today after testing done. No acute issues this am. Has been stressed out with lots of people dying around him recently. No cp, sob. Physical Exam Vital Signs / I&Os Vital Signs Date Time Temp Pulse Resp B/P Pulse O2 O2 Flow FiO2 Ox Delivery Rate 10/15 0633 98.1 62 24 157/87 98 Nasal 2.0 Cannula 10/15 0257 98.4 82 22 136/86 100 Nasal 2.0 Cannula 10/14 2302 97.9 87 20 163/95 97 Nasal 2.0 Cannula 10/14 2225 2.0 10/14 1744 97.9 96 20 170/77 100 Nasal 2.0 Cannula I&O 10/15 0000 10/14 1600 10/14 0800 Intake Total 0 Output Total 0 Balance 0 General Appearance Alert, Cooperative HEENT slight decrease in wrinkles on left and slightly L shifted tongue. Lungs Clear to auscultation, Normal air movement Cardiovascular Regular rate and rhythm Abdomen Soft, obese non tender Extremities No edema LAB Results Laboratory Tests 10/14 10/14 1645 1250 Chemistry Plasma Sodium (136 - 145 mmol/L) 142 Plasma Potassium (3.5 - 5.1 mmol/L) 3.6 Plasma Chloride (98 - 107 mmol/L) 104 CO2 (Enzymatic) (21 - 32 mmol/L) 25 BUN (7 - 18 mg/dL) 16 Creatinine (0.6 - 1.3 mg/dL) 1.0 Est GFR ( Amer) (mL/min) >60 Est GFR (Non-Af Amer) (mL/min) >60 Glucose (70 - 110 mg/dL) 121 Plasma Calcium (8.5 - 10.1 mg/dL) 8.9 Total Bilirubin (0.0 - 1.0 mg/dL) 0.5 AST (15 - 37 U/L) 21 ALT (12 - 78 U/L) 23 Alkaline Phosphatase (46 - 116 U/L) 82 Creatine Kinase (24 - 260 U/L) 190 Troponin (0.00 - 1.5 ng/mL) <0.05 Total Protein (6.4 - 8.2 g/dL) 7.0 Albumin (3.3 - 5.0 g/dL) 3.3 Amylase (25 - 115 U/L) 58 Lipase (73 - 393 U/L) 175 Coagulation INR (0.8 - 1.2) 1.0 APTT (24 - 34 SECONDS) 29 Hematology WBC (4.5 - 11.5 K/uL) 5.9 RBC (4.50 - 5.90 M/uL) 4.07 Hgb (13.5 - 17.5 gm/dL) 11.1 Hct (41.0 - 53.0 %) 34.3 MCV (80 - 100 fL) 84 MCH (26 - 34 pg) 27 RDW (11.6 - 14.8 %) 15.9 Neut % (Auto) (50 - 75 %) 70.4 Lymph % (Auto) (25 - 40 %) 17.4 [place] % (Auto) (3 - 14 %) 7.9 Eos % (Auto) (0 - 4 %) 3.9 Baso % (Auto) (0 - 2 %) 0.4 Plt Count, EDTA (150 - 400 K/uL) 304 PUBS MCHC (31 - 37 g/dL) 33 Urines Urine Color LIGHT YELLOW Urine Appearance CLEAR Urine pH (5.0 - 8.0) 5.5 Ur Specific [place] (1.010 - 1.030) 1.015 Urine Protein (NEGATIVE) NEGATIVE Urine Ketones (NEGATIVE) NEGATIVE Urine Blood (NEGATIVE) NEGATIVE Urine Nitrite (NEGATIVE) NEGATIVE Urine Bilirubin (NEGATIVE) NEGATIVE Urine Urobilinogen (0.2 - 1.0 EU/dL) 0.2 Ur Leukocyte Esterase (NEGATIVE) NEGATIVE Urine RBC (0 - 1 rbc/hpf) NONE SEEN Urine WBC (0 - 1 wbc/hpf) RARE Ur Epithelial Cells (0 - 5 EPI/hpf) RARE Urine Bacteria (NONE SEEN) NONE SEEN Urine Glucose (NEGATIVE) NEGATIVE Urine Comment CULT NOT INDICATED Assessment and Plan Problem List 1. CVA (cerebral vascular accident) Plan Work up in progress. Likely d/c later today. 2. Diabetes Plan keep him on home meds. 3. Hypertension Plan Watch on home meds 4. KRISTYN (obstructive sleep apnea) Plan Has KRISTYN and would rec using cpap here.
--- NOTE | 2016-10-15 07:36 | Provider's Discharge Care Plan ---
Problem, Goal, Plan Problem List 1. CVA (cerebral vascular accident) Instructions: Follow up as directed, Take meds as directed 2. Diabetes Instructions: Follow up as directed, Take meds as directed 3. Hypertension Instructions: Follow up as directed, Take meds as directed 4. KRISTYN (obstructive sleep apnea) Instructions: use cpap
[2016-10-15 10:39] VITALS: BP 150/97
--- NOTE | 2016-10-15 10:57 | DIAGNOSTIC IMAGING REPORT ---
PROCEDURE: US BILATERAL CAROTID DOPPLER INDICATION: CVA TECHNIQUE: Color Doppler duplex imaging of the carotid and vertebral vessels. COMPARISON: Bilateral carotid ultrasound 06/12/2012. FINDINGS: Minor right common carotid and the moderate calcific atherosclerosis of the bilateral bifurcations. Vessels are patent. High resistant wave form of the bilateral internal carotid arteries. Right common carotid artery peak systolic velocity 62 cm/second. Right internal carotid artery peak systolic velocity 71 cm/second. Right external carotid artery peak systolic velocity 110 cm/second. Right jwvoduxx-fn-hshquj carotid artery ratio 1.1 Right vertebral artery peak systolic velocity 46 cm/second antegrade. Left common carotid artery peak systolic velocity 67 cm/second. Left internal carotid artery peak systolic velocity 57 cm/second. Left external carotid artery peak systolic velocity 122 cm/second. Left elvmjfyi-un-zvesmu carotid artery ratio 0.9 Left vertebral artery peak systolic velocity 51 cm/second antegrade. IMPRESSION: 1. Bilateral ICA 16-49% stenosis, unchanged 2. High resistant wave form of the bilateral internal carotid arteries which may indicate distal stenosis. Consider MRA of the head and neck. Velocity criteria are extrapolated from diameter data as defined by the Society of Radiologists in Ultrasound Consensus Conference, Radiology 2003; 229; 340-346.
--- NOTE | 2016-10-15 10:57 | DIAGNOSTIC IMAGING REPORT ---
PROCEDURE: US BILATERAL CAROTID DOPPLER INDICATION: CVA TECHNIQUE: Color Doppler duplex imaging of the carotid and vertebral vessels. COMPARISON: Bilateral carotid ultrasound 06/12/2012. FINDINGS: Minor right common carotid and the moderate calcific atherosclerosis of the bilateral bifurcations. Vessels are patent. High resistant wave form of the bilateral internal carotid arteries. Right common carotid artery peak systolic velocity 62 cm/second. Right internal carotid artery peak systolic velocity 71 cm/second. Right external carotid artery peak systolic velocity 110 cm/second. Right ujvrlikr-cr-soozwe carotid artery ratio 1.1 Right vertebral artery peak systolic velocity 46 cm/second antegrade. Left common carotid artery peak systolic velocity 67 cm/second. Left internal carotid artery peak systolic velocity 57 cm/second. Left external carotid artery peak systolic velocity 122 cm/second. Left jsyxkqre-ef-hzykoz carotid artery ratio 0.9 Left vertebral artery peak systolic velocity 51 cm/second antegrade. IMPRESSION: 1. Bilateral ICA 16-49% stenosis, unchanged 2. High resistant wave form of the bilateral internal carotid arteries which may indicate distal stenosis. Consider MRA of the head and neck. Velocity criteria are extrapolated from diameter data as defined by the Society of Radiologists in Ultrasound Consensus Conference, Radiology 2003; 229; 340-346.
--- NOTE | 2016-10-15 15:31 | DIAGNOSTIC IMAGING REPORT ---
REFERRING PHYSICIAN/PROVIDER: Rubens Michelle MD CONSULTING IT SALES REPRESENTATIVE: Rayo Josue MD PROCEDURE: M-mode 2D echocardiography with spectral and color flow Doppler TECHNICAL QUALITY: The overall quality of the echo is fair INDICATION: CVA RHYTHM DURING PROCEDURE: Normal sinus rhythm INTERPRETATIONS: LEFT VENTRICLE: There is mild left ventricular hypertrophy. Interventricular septum measures 15 mm in thickness in the posterior wall measures 12 mm in thickness. The LV size is normal with normal systolic function. The calculated ejection fraction was 63%. There is abnormal diastolic function noted. RIGHT VENTRICLE: Normal right ventricular size and systolic function ATRIA: The left atrial size is mildly enlarged with a left atrial volume index of 38 mm per meter squared. The right atrial size is normal. MITRAL VALVE: There is mild to moderate mitral regurgitation. There is no significant mitral stenosis noted. AORTIC VALVE: The aortic valve is trileaflet. There is mild aortic sclerosis without any evidence of aortic stenosis. There is trace aortic regurgitation noted. TRICUSPID VALVE: Tricuspid valve leaflets are thin and pliable. There is mild tricuspid regurgitation noted. The estimated right ventricular systolic pressure is mildly increased at 39 mmHg. PULMONIC VALVE: There is no significant pulmonic stenosis or pulmonic regurgitation noted. GREAT VESSELS: The ascending aorta looks visually normal. PERICARDIUM: There is no significant pericardial effusion noted. IMPRESSION: 1. Mild left ventricular hypertrophy 2. Normal biventricular size and systolic function 3. Mild left atrial enlargement 4. Mild to moderate mitral regurgitation 5. Mild tricuspid regurgitation 6. Mildly increased right ventricular systolic pressure (RVSP = 39 mmHg)
== END 2016-10-15 14:05 | disposition home or self-care (01) ==
LOC: ED SRH 12:12 → ACUTE2 SRH 15:13 → TRANS SRH 15:13 → ACUTE2 SRH 15:13 → TRANS SRH 17:11 → ACUTE2 SRH 17:30
PROVIDERS: ADMIT Emergency Medicine
DX: I63.9 Cerebral infarction, unspecified (principal); R29.810 Facial weakness; R47.1 Dysarthria and anarthria; I10 Essential (primary) hypertension; E11.40 Type 2 diabetes mellitus with diabetic neuropathy, unspecified; J45.909 Unspecified asthma, uncomplicated; G47.33 Obstructive sleep apnea (adult) (pediatric); E78.5 Hyperlipidemia, unspecified; Z79.4 Long term (current) use of insulin
CPT/HCPCS: 29230; 29248; 90004; 90098; 90100; 90616; 92235; 92530; 92610; 94001; 94060; 95059